=== PATIENT | female | born 1980 | race Caucasian/White ===

== ENCOUNTER 2023-07-18 08:14 | Emergency (ER) | payer MEDICAID ==
[~2023-07-18] VITALS: Ht 167.6 cm; Wt 68.2 kg
[2023-07-18 08:21] VITALS: BP 119/79; PULSE 91; RESP 16; TEMP 98
[2023-07-18 08:51] LABS: APPEARANCE,URINE HAZY (CLEAR); BILIRUBIN,URINE NEGATIVE (NEGATIVE); COLOR,URINE LIGHT YELLOW (YELLOW); GLUCOSE, URINE (UA) NEGATIVE (NEGATIVE); KETONES,URINE NEGATIVE (NEGATIVE); LEUKOCYTE ESTERASE ,URINE NEGATIVE (NEGATIVE); NITRATE,URINE NEGATIVE (NEGATIVE); OCCULT BLOOD,URINE NEGATIVE (NEGATIVE); PH,URINE 5.5 (5.0-8.0); PH,URINE DRUG SCREEN 5.5 (5.0-8.0); PROTEIN,URINE TRACE mg/dL (NEGATIVE); SPECIFIC GRAVITIY, URINE 1.009 (1.003-1.030); UROBILINOGEN,URINE <=1.0 mg/dL (<=1.0)
[2023-07-18 08:57] LABS: ALCOHOL, URINE DRUG SCREEN NEGATIVE (NEGATIVE); AMPHET/METH SCREEN,URINE NEGATIVE (NEGATIVE); BARBITURATE SCREEN, URINE NEGATIVE (NEGATIVE); BENZODIAZEPINES SCREEN,URINE NEGATIVE (NEGATIVE); CANNABINOID SCREEN,URINE NEGATIVE (NEGATIVE); COCAINE SCREEN,URINE NEGATIVE (NEGATIVE); METHADONE SCREEN, URINE NEGATIVE (NEGATIVE); OPIATE SCREEN,URINE NEGATIVE (NEGATIVE); PHENCYCLIDINE SCREEN,URINE NEGATIVE (NEGATIVE)
[2023-07-18 09:12] LABS: BASOPHILS % (AUTO) 0.4 % (0.0-2.0); EOSINOPHILS % (AUTO) 1.4 % (1.0-6.0); HEMATOCRIT 40.9 % (36-46); HEMOGLOBIN 13.9 g/dL (12.0-16.0); LYMPHOCYTES # (AUTO) 1.2 K/uL (1.0-4.8); MEAN CORPUSCULAR HEMOGLOBIN 30.1 pg (26.0-34.0); MEAN CORPUSCULAR HGB CONC 33.8 G/dL (31.0-37.0); MEAN CORPUSCULAR VOLUME 89 fL (80-100); MONOCYTES # (AUTO) 0.3 K/uL (0.1-1.0); MONOCYTES % (AUTO) 4.7 % (2.0-9.0); NEUTROPHILS # (AUTO) 5.7 K/uL (1.8-7.7); NEUTROPHILS % (AUTO) 77.5 % (40.0-70.0); PLATELET COUNT (AUTO) 244 K/uL (150-450); RED BLOOD CELL COUNT(AUTO) 4.61 MIL/uL (4.00-5.20); RED CELL DISTRIBUTION WIDTH 13.5 % (11.5-14.5); WHITE BLOOD COUNT (AUTO) 7.3 K/uL (4.5-11.0)
[2023-07-18 09:20] LABS: ANION GAP 8 mmol/L (8-16); CARBON DIOXIDE 29 mmol/L (22-29); CHLORIDE 104 mmol/L (98-107); CREATININE 1.06 mg/dL (0.60-1.30); GLOMERULAR FILTR. RATE CALC 57 mL/min (>60); GLUCOSE,RANDOM 91 mg/dL (70-110); SODIUM SERUM 141 mmol/L (136-145); UREA NITROGEN, BLOOD 8 mg/dL (7-18)
[2023-07-18 09:26] LABS: ALANINE AMINOTRANSFERASE 19 U/L (12-78); ALBUMIN 3.9 g/dL (3.4-5.0); ALKALINE PHOSPHATASE 72 U/L (46-116); ASPARTATE AMINOTRANSFERASE 15 U/L (15-37); BILIRUBIN,TOTAL 0.2 mg/dL (0.1-1.0); TOTAL PROTEIN, SERUM 7.4 g/dL (6.4-8.2)
[2023-07-18 09:27] LABS: ALCOHOL, BLOOD (SERUM) < 3 mg/dL (0-10)
== END 2023-07-18 09:59 | disposition home or self-care (01) ==
LOC: EMS 08:15
DX: K52.9 Noninfective gastroenteritis and colitis, unspecified (principal); R53.1 Weakness; F17.210 Nicotine dependence, cigarettes, uncomplicated
CPT/HCPCS: 99283; 80053; 81003; 84703; 85025; 36415; 80307; G0480

== ENCOUNTER 2023-08-19 18:37 | Emergency (ER) | payer MEDICAID, OTHER ==
[~2023-08-19] VITALS: Ht 167.6 cm; Wt 65.9 kg
[2023-08-19 19:51] VITALS: TEMP 98
[2023-08-19 19:58] VITALS: BP 119/62; PULSE 91; RESP 16
== END 2023-08-19 20:41 | disposition home or self-care (01) ==
LOC: EMS 18:57
DX: R11.2 Nausea with vomiting, unspecified (principal); F17.210 Nicotine dependence, cigarettes, uncomplicated
CPT/HCPCS: 99283; Z7502

== ENCOUNTER 2023-10-01 15:48 | Inpatient (IN) | payer MEDICAID, OTHER ==
[~2023-10-01] VITALS: Ht 167.6 cm; Wt 63.4 kg
[2023-10-01 17:56] LABS: BASOPHILS % (AUTO) 0.8 % (0.0-2.0); EOSINOPHILS % (AUTO) 1.3 % (1.0-6.0); HEMATOCRIT 39.4 % (36-46); HEMOGLOBIN 13.2 g/dL (12.0-16.0); LYMPHOCYTES # (AUTO) 2.3 K/uL (1.0-4.8); LYMPHOCYTES % (AUTO) 24.9 % (22.0-44.0); MEAN CORPUSCULAR HEMOGLOBIN 29.1 pg (26.0-34.0); MEAN CORPUSCULAR HGB CONC 33.5 G/dL (31.0-37.0); MEAN CORPUSCULAR VOLUME 87 fL (80-100); MONOCYTES # (AUTO) 0.5 K/uL (0.1-1.0); MONOCYTES % (AUTO) 5.7 % (2.0-9.0); NEUTROPHILS # (AUTO) 6.3 K/uL (1.8-7.7); NEUTROPHILS % (AUTO) 67.3 % (40.0-70.0); PLATELET COUNT (AUTO) 315 K/uL (150-450); RED BLOOD CELL COUNT(AUTO) 4.54 MIL/uL (4.00-5.20); RED CELL DISTRIBUTION WIDTH 13.3 % (11.5-14.5); WHITE BLOOD COUNT (AUTO) 9.3 K/uL (4.5-11.0)
[2023-10-01 18:06] LABS: COVID AG,FIA SOURCE NASAL SWAB
[2023-10-01 18:08] LABS: ANION GAP 8 mmol/L (8-16); CALCIUM, TOTAL 9.4 mg/dL (8.8-10.5); CARBON DIOXIDE 28 mmol/L (22-29); CHLORIDE 104 mmol/L (98-107); CREATININE 0.78 mg/dL (0.60-1.30); GLOMERULAR FILTR. RATE CALC > 60 mL/min (>60); GLUCOSE,RANDOM 89 mg/dL (70-110); SODIUM SERUM 140 mmol/L (136-145); UREA NITROGEN, BLOOD 6 mg/dL (7-18)
[2023-10-01 18:11] LABS: ALANINE AMINOTRANSFERASE 18 U/L (12-78); ALBUMIN 4.2 g/dL (3.4-5.0); ALKALINE PHOSPHATASE 74 U/L (46-116); ASPARTATE AMINOTRANSFERASE 15 U/L (15-37); BILIRUBIN,TOTAL 0.5 mg/dL (0.1-1.0); TOTAL PROTEIN, SERUM 7.3 g/dL (6.4-8.2)
[2023-10-01 18:21] LABS: ALCOHOL, BLOOD (SERUM) < 3 mg/dL (0-10)
[2023-10-01 18:24] LABS: ALCOHOL, URINE DRUG SCREEN NEGATIVE (NEGATIVE); AMPHET/METH SCREEN,URINE NEGATIVE (NEGATIVE); BARBITURATE SCREEN, URINE NEGATIVE (NEGATIVE); BENZODIAZEPINES SCREEN,URINE NEGATIVE (NEGATIVE); CANNABINOID SCREEN,URINE NEGATIVE (NEGATIVE); COCAINE SCREEN,URINE NEGATIVE (NEGATIVE); METHADONE SCREEN, URINE NEGATIVE (NEGATIVE); OPIATE SCREEN,URINE NEGATIVE (NEGATIVE); PHENCYCLIDINE SCREEN,URINE NEGATIVE (NEGATIVE)
[2023-10-01 18:31] LABS: SARS-COV2 (COVID) ANTIGEN,FIA Negative (Negative)
[2023-10-01] MEDS ORDERED: ONDANSETRON HCL 4 MG/2 ML VIAL IVP PRN (20:00)
[2023-10-01] MEDS ORDERED: NALOXONE HCL 1 MG/ML 2 ML SYRINGE IVP PRN (20:00)
[2023-10-01] MEDS: DOCUSATE SODIUM 100 MG CAPSULE PO SCH (21:00)
[2023-10-02 04:00] VITALS: BP 116/67; PULSE 69; RESP 16; TEMP 98.1
[2023-10-02 06:27] LABS: BASOPHILS % (AUTO) 0.6 % (0.0-2.0); EOSINOPHILS % (AUTO) 2.6 % (1.0-6.0); HEMATOCRIT 38.6 % (36-46); LYMPHOCYTES # (AUTO) 2.9 K/uL (1.0-4.8); LYMPHOCYTES % (AUTO) 32.9 % (22.0-44.0); MEAN CORPUSCULAR HEMOGLOBIN 29.1 pg (26.0-34.0); MEAN CORPUSCULAR HGB CONC 33.7 G/dL (31.0-37.0); MEAN CORPUSCULAR VOLUME 86 fL (80-100); MONOCYTES # (AUTO) 0.6 K/uL (0.1-1.0); MONOCYTES % (AUTO) 6.7 % (2.0-9.0); NEUTROPHILS # (AUTO) 5.1 K/uL (1.8-7.7); NEUTROPHILS % (AUTO) 57.2 % (40.0-70.0); PLATELET COUNT (AUTO) 294 K/uL (150-450); RED BLOOD CELL COUNT(AUTO) 4.47 MIL/uL (4.00-5.20)
[2023-10-02 06:45] LABS: ANION GAP 11 mmol/L (8-16); CALCIUM, TOTAL 8.9 mg/dL (8.8-10.5); CARBON DIOXIDE 26 mmol/L (22-29); CHLORIDE 103 mmol/L (98-107); CREATININE 0.79 mg/dL (0.60-1.30); GLOMERULAR FILTR. RATE CALC > 60 mL/min (>60); GLUCOSE,RANDOM 85 mg/dL (70-110); POTASSIUM 3.6 mmol/L (3.5-5.1); SODIUM SERUM 140 mmol/L (136-145); UREA NITROGEN, BLOOD 7 mg/dL (7-18)
[2023-10-02 07:44] VITALS: BP 130/91; PULSE 78; RESP 16; TEMP 97.7
[2023-10-02] MEDS: DOCUSATE SODIUM 100 MG CAPSULE PO SCH ×2 (08:32→20:42)
[2023-10-02] MEDS: HEPARIN SODIUM,PORCINE 5,000 UNITS/ML VIAL SQ SCH ×4 (08:33→23:51)
[2023-10-02] MEDS ORDERED: BUSP10TA23 PO (09:29)
[2023-10-02] MEDS ORDERED: TRAZ-184 PO (09:30)
[2023-10-02] MEDS ORDERED: DENTURE ADHESIVE 68 GM CREAM DT PRN (09:30)
[2023-10-02] MEDS: ACETAMINOPHEN 325 MG TABLET PO PRN ×2 (11:31→18:21)
[2023-10-02 11:48] VITALS: BP 133/85; PULSE 62; RESP 18; TEMP 98
[2023-10-02] MEDS: LORazepam 1 MG TABLET PO PRN ×2 (12:17→18:21)
[2023-10-02 13:48] LABS: APPEARANCE,URINE HAZY (CLEAR); BILIRUBIN,URINE NEGATIVE (NEGATIVE); GLUCOSE, URINE (UA) NEGATIVE (NEGATIVE); LEUKOCYTE ESTERASE ,URINE TRACE (NEGATIVE); NITRATE,URINE NEGATIVE (NEGATIVE); OCCULT BLOOD,URINE LARGE (NEGATIVE); PROTEIN,URINE TRACE mg/dL (NEGATIVE)
[2023-10-02 14:06] LABS: COLOR,URINE LIGHT RED (YELLOW)
[2023-10-02 14:08] LABS: BACTERIA,URINE None Seen /HPF (None Seen); RBC,URINE Full Field /HPF (0-2); SQUAMOUS EPITHELIAL CELL,UR Few /LPF (None Seen); WBC,URINE 0-2 /HPF (0-5)
[2023-10-02 15:28] VITALS: BP 136/85; PULSE 85; RESP 18; TEMP 98
[2023-10-02 20:12] VITALS: BP 130/88; PULSE 82; RESP 18; TEMP 98.3
[2023-10-02] MEDS: TraZODone HCL 50 MG TABLET PO PRN (20:48)
[2023-10-03 00:30] VITALS: BP 110/59; PULSE 63; RESP 18; TEMP 98.3
[2023-10-03 05:15] VITALS: BP 124/83; PULSE 76; RESP 18; TEMP 97.4
[2023-10-03] MEDS: LORazepam 1 MG TABLET PO PRN (05:20)
[2023-10-03] MEDS: ACETAMINOPHEN 325 MG TABLET PO PRN ×3 (05:21→21:58)
[2023-10-03] MEDS: DOCUSATE SODIUM 100 MG CAPSULE PO SCH ×2 (09:36→20:25)
[2023-10-03] MEDS: HEPARIN SODIUM,PORCINE 5,000 UNITS/ML VIAL SQ SCH ×2 (09:37→16:49)
[2023-10-03 11:19] VITALS: BP 111/72; PULSE 72; RESP 14; TEMP 97.5
[2023-10-03] MEDS ORDERED: NALOXONE HCL 1 MG/ML 2 ML SYRINGE IVP PRN (16:00)
[2023-10-03] MEDS: BusPIRone HCL 10 MG TABLET PO PRN (16:49)
[2023-10-03 17:51] VITALS: BP 118/81; PULSE 82; RESP 16; TEMP 98
[2023-10-03 21:47] VITALS: BP 112/80; PULSE 85; RESP 19; TEMP 97.6
[2023-10-03] MEDS: TraZODone HCL 50 MG TABLET PO PRN (21:58)
[2023-10-04] MEDS: BusPIRone HCL 10 MG TABLET PO PRN (03:30)
[2023-10-04 06:44] VITALS: BP 104/85; PULSE 72; RESP 18; TEMP 98.2
[2023-10-04 08:17] VITALS: BP 110/75; PULSE 64; RESP 18; TEMP 98.2
[2023-10-04] MEDS: DOCUSATE SODIUM 100 MG CAPSULE PO SCH (09:00)
[2023-10-04] MEDS: HEPARIN SODIUM,PORCINE 5,000 UNITS/ML VIAL SQ SCH ×2 (10:17)
[2023-10-04] MEDS ORDERED: ACET-2247 PO (11:49)
== END 2023-10-04 20:01 | DRG 918 ==
LOC: EMS 15:53 → 5S 21:53 → 6S 10-03 18:46
PROVIDERS: ADMIT Internal Medicine; ATTEND Internal Medicine
DX: T40.412A Poisoning by fentanyl or fentanyl analogs, intentional self-harm, initial encounter (principal); F33.2 Major depressive disorder, recurrent severe without psychotic features; F11.10 Opioid abuse, uncomplicated; Z20.822 Contact with and (suspected) exposure to COVID-19; F41.9 Anxiety disorder, unspecified; G47.00 Insomnia, unspecified; Z87.891 Personal history of nicotine dependence; Y92.89 Other specified places as the place of occurrence of the external cause
CPT/HCPCS: 74176; 80048; 80053; 80307; 81001; 83735; 84703; 85025; 99285; G0378; G0480; J1644

== ENCOUNTER 2024-03-13 20:13 | Emergency (ER) | payer OTHER ==
[~2024-03-13] VITALS: Ht 167.6 cm; Wt 65.9 kg
[~2024-03-13 20:13] MED LIST: BUPR1FIL19 SL
[2024-03-13 20:22] VITALS: BP 107/70; PULSE 98; RESP 18; TEMP 99.4
[2024-03-13] MEDS ORDERED: AMOX500C2 PO (20:31)
[2024-03-13] MEDS ORDERED: BACL10TA PO (21:44)
[2024-03-13] MEDS: LIDOCAINE 5% TRANSDERMAL PATCH TD ONE (21:44)
[2024-03-13] MEDS: KETOROLAC TROMETHAMINE 30 MG/ML VIAL IM ONE (21:45)
[2024-03-13] MEDS: BACLOFEN 10 MG TABLET PO ONE (21:46)
== END 2024-03-13 21:57 | disposition home or self-care (01) ==
LOC: EMS 20:13
DX: G89.29 Other chronic pain (principal); M54.50 Low back pain, unspecified
CPT/HCPCS: 99283; 96372; J1885